=== PATIENT | male | born 1980 | race Caucasian/White ===

== ENCOUNTER 2017-06-12 14:39 | Emergency (ER) | payer BC ==
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
[2017-06-12 18:18] VITALS: BP 139/77
== END 2017-06-12 16:14 | disposition home or self-care (01) ==
LOC: ER 14:39
DX: S83.8X2A Sprain of other specified parts of left knee, initial encounter (principal); M25.562 Pain in left knee; W22.8XXA Striking against or struck by other objects, initial encounter
CPT/HCPCS: 99283

== ENCOUNTER 2017-10-13 21:03 | Emergency (ER) | payer BC ==
--- NOTE | 2017-10-13 22:11 | RADIOLOGY REPORT (SQ) ---
EXAM DESCRIPTION: HAND RIGHT 3 VIEWS COMPLETED DATE/TIME: 10/13/2017 9:30 pm REASON FOR STUDY: PAIN/INJURY COMPARISON: None. EXAM PARAMETERS: NUMBER OF VIEWS: Three views. TECHNIQUE: AP, lateral and oblique radiographic images acquired of the right hand. LIMITATIONS: None. FINDINGS: MINERALIZATION: Normal. BONES: No acute fracture or dislocation. No worrisome bone lesions. JOINTS: No effusions. SOFT TISSUES: No significant soft tissue swelling. No radiopaque foreign body. OTHER: No other significant finding. IMPRESSION: No fracture or radiopaque foreign body. TECHNICAL DOCUMENTATION: JOB ID: [id number] 2010 [employer]- All Rights Reserved
--- NOTE | 2017-10-13 22:22 | ER Document Report ---
HPI - HPI Patient complains to provider of: cut right thumb Onset: This evening Onset/Duration: Sudden Pain Level: 2 Context: 37 yo male that lives with mom cut dorsal proximal right thumb while moving bed this evening. Tetanus is not current. Associated Symptoms: None Exacerbated by: Denies Relieved by: Denies Similar symptoms previously: No Recently seen / treated by doctor: No - ROS ROS below otherwise negative: Yes Systems Reviewed and Negative: Yes All other systems reviewed and negative Past Medical History - General Information source: Patient - Social History Smoking Status: Never Smoker Frequency of alcohol use: None Drug Abuse: None Lives with: Parents Family History: Reviewed & Not Pertinent Patient has suicidal ideation: No Patient has homicidal ideation: No Pulmonary Medical History: Reports: Hx Pneumonia Renal/ Medical History: Denies: Hx Peritoneal Dialysis Past Surgical History: Reports: Hx Testicular Surgery - Immunizations Hx Diphtheria, Pertussis, Tetanus Vaccination: Yes Vertical Provider Document - CONSTITUTIONAL Agree With Documented VS: Yes Exam Limitations: No Limitations General Appearance: No Apparent Distress - INFECTION CONTROL TRAVEL OUTSIDE OF THE [place] IN LAST 30 DAYS: No - HEENT HEENT: Normocephalic - NECK Neck: Supple - RESPIRATORY O2 Sat by Pulse Oximetry: 98 - MUSCULOSKELETAL/EXTREMETIES Musculoskeletal/Extremeties: MAEW, FROM, Tender - 1.5 cm flap cut dorsal proximal right thumb, n/c/ intact - NEURO Level of Consciousness: Awake, Alert - DERM Integumentary: Laceration Course - Re-evaluation Re-evalutation: 10/13/17 22:59 X-ray is negative - Vital Signs Vital signs: Temp Pulse Resp BP Pulse Ox 97.5 F 71 16 122/65 98 10/13/17 21:03 10/13/17 21:03 10/13/17 21:03 10/13/17 21:03 10/13/17 21:03 Discharge - Discharge Clinical Impression: right thumb flap laceration Condition: Good Disposition: HOME, SELF-CARE Instructions: Care of Steri-Strip Closure ([facility]), Tetanus Immunization Given ( [facility]) Additional Instructions: keep the wound clean and dry let the strips fall off on there own in about a week to er any signs of infection -red, hot, pus
[2017-10-13] MEDS ORDERED: DIPH/PERTUSS(ACELL)/TETANUS VAC/PF 0.5 ML SYR (>=10YO) IM ONE (22:29)
[2017-10-13 23:22] VITALS: BP 123/77
== END 2017-10-13 23:22 | disposition home or self-care (01) ==
LOC: ER 21:03
DX: S61.011A Laceration without foreign body of right thumb without damage to nail, initial encounter (principal); W45.8XXA Other foreign body or object entering through skin, initial encounter; Y93.89 Activity, other specified
CPT/HCPCS: 90471; 90715; 99283